=== PATIENT | male | born 1965 | race Caucasian/White ===

== ENCOUNTER 2016-12-23 14:17 | Inpatient (IN) | payer MEDICARE, MEDICAID ==
[~2016-12-23] VITALS: Ht 185.4 cm; Wt 148.8 kg
[~2016-12-23 14:17] MED LIST: ACET325T51 PO; AMLO5TAB2 PO; ASPI-275 PO; ATOR10TA66 PO; BISA10SU15 RC; CARB15DR3 BOTH_EYES; CARV25TA2 PO; DIPH50C PO; DOXA4TAB3 PO; FURO40TA4 PO; HYDR2TAB27 PO; HYPR15DR3 BOTH_EYES; INSU100C8 SUBQ; INSU100V2 SUBQ; INSU100V7 SUBQ; ISOS30TA4 PO; LORA0.5T PO; NITR0.4T SL; NITR1PAT64 TD; OMEG500C3 PO; OXYB5TAB10 PO; POLY17PO6 PO; POTA10TA14 PO; PROM25TA14 PO; SERT100T9 PO; SERT50TA9 PO; ZLP10T PO; ZYL100 PO; [UNRECOGNIZED DRUG - CODE] PO
[2016-12-23 14:26] VITALS: BP 152/90; PULSE 71; RESP 24; O2SAT 85
[2016-12-23 15:17] LABS: BASOPHILS % (AUTO) 0.3 % (0-3); EOSINOPHILS % (AUTO) 2.8 % (0-5); MONOCYTES % (AUTO) 5.3 % (4-12); Mean Corpuscular Hemoglobin 28.7 pg (27.0-35.0); Mean Corpuscular Volume 87.3 fL (81-100); NEUTROPHILS % (AUTO) 80.1 % (40-74); Platelet Count 192 bil/L (150-400)
--- NOTE | 2016-12-23 15:19 | DRSVH ---
PROCEDURE: X-RAY CHEST ONE VIEW, PORTABLE ([id number]) INDICATIONS: dyspnea TECHNIQUE: One view of the chest was acquired. COMPARISON: [facility], CR, CHEST 1VW (PORTABLE), 07/22/2014, 18:42. [facility], CR, HAND 2VW (LT), 05/09/2014, 18:05. FINDINGS: Surgical changes and devices: None. Lungs and pleura: The pulmonary vascularity is moderately increased with prominent perihilar intersti tial lung markings. No lobar consolidation, large effusion or pneumothorax is evident. Mediastinum: Mediastinal contours appear normal. Heart size is moderately enlarged. Bones and chest wall: No suspicious bony lesions. Overlying soft tissues appear unremarkable. IMPRESSION: Cardiomegaly and moderate vascular congestion is suspicious for developing pulmonary pau a. Please correlate clinically. Dictated by: Isiah Santos M.D. on 12/23/2016 at 14:16 Approved by: Isiah Santos M.D. on 12/23/2016 at 14:17
[2016-12-23] MEDS ORDERED: Furosemide 10 mg/mL 10 mL Inj IVPUSH ONE (15:30)
[2016-12-23 15:39] LABS: TROPONIN T 0.014 ug/L (0.0-0.011)
[2016-12-23 15:42] VITALS: BP 157/80; PULSE 71; RESP 21; O2SAT 95
--- NOTE | 2016-12-23 17:17 | ED.REPORT ---
HPI-Dyspnea / Wheezing Date of Service Dec 23, 2016 ED Provider: Forrest Flores DO Patient is a pleasant 51-year-old gentleman with complex medical history significant for congestive heart failure, and stage III kidney disease, insulin- dependent diabetes, presents with 2 weeks progressive shortness of breath and worsening orthopnea. He reports having weight gain, lower extremity swelling greater than from his baseline, close feeling tighter. Reports he is supposed to be taking 40 mg of furosemide in the morning and at night, he was becoming annoyed at having to get up at night to urinate so he has stopped taking his 40 mg nighttime dose, for 1 month. Denies chest pain, does have some lightheadedness when he is very short of breath, no dizziness, no abdominal pain , no nausea/vomiting/diarrhea/constipation. No rashes, denies fever says that he has had some chills. States he had similar symptoms 10 years ago and was diagnosed as "walking pneumonia" Nursing Notes Stated Complaint: SHORT OF BREATH Chief Complaint: Respiratory Distress Nursing Notes Reviewed: Yes Allergies: Coded Allergies: hydroxyzine (Verified Allergy, Unknown, 12/23/16) simvastatin (Verified Allergy, Unknown, per MAR from [facility], ) hydralazine (Verified Adverse Reaction, Severe, dizziness, nausea, vomiting, 12/23/16) Scheduled Allopurinol (Allopurinol) 100 Mg Tablet 100 MG PO QAM Amitriptyline (Amitriptyline) 10 Mg Tablet 20 MG PO HS Amlodipine (Amlodipine) 5 Mg Tablet 5 MG PO QAM Aspirin (Aspirin) 325 Mg Tablet 325 MG PO BID Carvedilol (Carvedilol) 25 Mg Tablet 50 MG PO BID Furosemide (Furosemide) 40 Mg Tablet 40 MG PO BID Insulin Glargine (Lantus U100 Insulin Vial) 100 Unit/Ml Vial 26 UNIT SUBQ QAM Insulin Glulisine (Apidra U100 Insulin Vial) 100 Unit/1 Ml Vial 13 UNIT SUBQ TIDAC [place]-3/Dha/Epa/Fish Oil (Fish Oil 1,000 mg Softgel) 1 Each Capsule 1 EACH PO BID Paroxetine (Paroxetine) 40 Mg Tablet 40 MG PO QAM Potassium Chloride ER (Klor-Con M10) 10 Meq Tab.er.prt 10 MEQ PO MOWEFR Tamsulosin ER (Tamsulosin ER) 0.4 Mg Cap.er.24h 0.8 MG PO HS Scheduled PRN Guaifenesin (Mucinex) 600 Mg Tablet.er 600 MG PO BID PRN PRN For Cough Lorazepam (Lorazepam) 0.5 Mg Tablet 0.5 MG PO BID PRN PRN For Anxiety Trazodone (Trazodone) 50 Mg Tablet 50 MG PO HS PRN PRN Insomnia General Time Seen by MD: 14:45 Chief Complaint Shortness of breath Similar Sx Previous: Yes Past Medical History Past Medical History 1. Significant coronary disease. 2. Recent non STEMI. 3. Hypertension. 4. Hypertensive nephropathy. 5. Aortic stenosis graded moderately severe with a valve gradient of 15 mm. 6. He has had 2 strokes in the past with chronic left-sided weakness. 7. He has chronic stage 3 kidney disease. 8. Severe morbid obesity with a BMI above 50. 9. Congestive heart failure with systolic and diastolic components. 10. History also of gout. 11. Cataracts. 12. Insulin-dependent diabetes. 13. Traumatic jones catheter REMOVAL. Past Surgical History rt wrist trauma requiring sugical intervention ~8yrs ago. Family History Mother - none. Father - DMII, HTN, TIAs And "brain tumor" Aunts - DMII Smoking History Never Smoker Social History Lives at home, has care givers. Drug Use: Denies drug use Ambulatory Status Walker Review of Systems Complete sys rev & neg: except as marked. Physical Exam General: Sitting upright in bed 90, mild distress, morbidly obese HEENT: Normocephalic, atraumatic, EOMI grossly, left pupil is mildly enlarge slightly disfigured, mucous membranes moist, conjunctiva pink, poor dentition. Cardiovascular: Regular rate and rhythm, 4/6 blowing systolic murmur heard throughout precordium, peripheral pulses 2/4 radial, unable to appreciate dorsal pedalis Pulmonary: Rales appreciated, breath sounds distant. No wheezing or rhonchi. No egophany or dullness to percussion. Conversational dyspnea Abdominal: Soft to palpation, bowel sounds present 4, no hepatosplenomegaly. Negative rebound. Grossly rotund Extremities: Severe equal bilateral pitting edema to his knees. No open wounds , sores, weeping. Neuro: Neurologically grossly intact, strength is equal bilaterally upper and lower extremities. Speech is fragmented, slow, and deliberate MSK: Able to move extremities on their own volition, strength 5 out of 5 equal bilaterally to upper and lower extremities. Initial Vital Signs Vital Signs (First) Date Time Temp Pulse Resp B/P Pulse Ox O2 Delivery O2 Flow Rate FiO2 12/23/16 14:26 36.2 71 24 152/90 85 Room Air 12/23/16 15:42 2 Initial VS: Reviewed Interpretation & Diagnostics Lab Results Interpretation Result Diagram: 12/23/16 1448 12/23/16 1448 Test 12/23/16 14:48 White Blood Count 6.2th/mm3 (3.8-10.1) Red Blood Count 3.87mil/mm3 (4.40-5.80) Hemoglobin 11.1g/dL (13.8-17.2) Hematocrit 33.8% (41.0-50.0) Mean Corpuscular Volume 87.3fL (81-100) Mean Corpuscular Hemoglobin 28.7pg (27.0-35.0) Mean Corpuscular Hemoglobin Concent 32.8% (32.0-37.0) Red Cell Distribution Width 14.0% (12.3-15.4) Platelet Count 192bil/L (150-400) Neutrophils (%) (Auto) 80.1% (40-74) Lymphocytes (%) (Auto) 11.3% (14-46) Monocytes (%) (Auto) 5.3% (4-12) Eosinophils (%) (Auto) 2.8% (0-5) Basophils (%) (Auto) 0.3% (0-3) D-Dimer 1.17mg/L FEU (<0.50) Sodium Level 138mEq/L (134-144) Potassium Level 4.4mEq/L (3.5-5.2) Chloride Level 103mEq/L (97-108) Carbon Dioxide Level 19mmol/L (18-29) Blood Urea Nitrogen 48mg/dL (6-24) Creatinine 3.13mg/dL (0.76-1.27) Estimat Glomerular Filtration Rate 22mL/min (>59) Glucose Level 149mg/dL (60-99) Lactic Acid Level 0.8mmol/L (0.4-2.0) Calcium Level 9.0mg/dL (8.5-10.1) Magnesium Level 2.0mg/dL (1.6-2.6) Total Bilirubin 0.7mg/dL (0.0-1.2) Aspartate Amino Transf (AST/SGOT) 16U/L (0-50) Alanine Aminotransferase (ALT/SGPT) 14U/L (0-44) Alkaline Phosphatase 70U/L (25-150) Pro-B-Type Natriuretic Peptide 4701pg/mL (0-121) Total Protein 7.1g/dL (6.4-8.4) Albumin 3.5g/dL (3.4-5.0) Procalcitonin 0.12ng/mL (0.00-0.08) Lab Results Interpretation: Mild anemia Elevated BUN and creatinine Hyperglycemia Elevated troponin and pro-calcitonin may be secondary to decreased renal clearance Elevated troponin may indicate cardiac stress/demand ischemia secondary to fluid overload state ECG Interpretation ECG Interpretation: Sinus rhythm Rate 67 "Abnormal T, consider ischemia, lateral leads. ST elevation, consider anterior injury" No substantial change from previous EKG from 2014 X-Ray Chest Interpretation Chest Xray Interpretation: IMPRESSION: Cardiomegaly and moderate vascular congestion is suspicious for developing pulmonary edema. Please correlate clinically. Dictated by: Isiah Santos M.D. on 12/23/2016 at 14:16 Re-Eval/Medical Decision Med Decision/Clinical Course Lasix 80mg IV Base of the clinical context of increased shortness of breath, poor medication compliance taking only half of his prescribed dose of furosemide, subjective increased abdominal girth and lower extremity edema, felt this was most likely congestive heart failure exacerbation leading to pulmonary edema. Chest x-ray was consistent with pulmonary edema, troponin was mildly elevated as well as his creatinine consistent with stage III renal disease. Patient was given IV Lasix which he responded to well, putting out substantial amount of fluid before able to use a bedside urinal. Due to CHF exacerbation as well as other comorbidities of diabetes and elevated troponin and mildly elevated pro- calcitonin, felt patient should be admitted for medical management. Consultation : Referral / Consult Name: Stewart Mata MD Consulted With: Hospitalist Call Returned at: 18:00 Java Groovy Developer: Will see patient, Agrees with eval, Agrees with plan, Accepts admit Differential Diagnosis: Positive: Congestive heart failure Severity: Serious condition Diagnosis Appears: Evident Discharge & Departure Impression: Primary Impression: CHF (congestive heart failure) Congestive heart failure type: combined Congestive heart failure chronicity: acute on chronic Qualified Code: I50.43 - Acute on chronic combined systolic (congestive) and diastolic (congestive) heart failure Additional Impressions: Demand ischemia Pulmonary edema cardiac cause Referrals: Ray Diaz MD (PCP) Attending Statement seen and examined with Dr Hi on 12/23. Agree with above. Son Vilchis DO Dec 23, 2016 15:19 Onofre Reynolds MD Dec 24, 2016 00:50
[2016-12-23] MEDS ORDERED: TAMS0.4C29 PO (17:25)
[2016-12-23] MEDS ORDERED: OMEG-38 PO (17:25)
[2016-12-23] MEDS ORDERED: AMIT10TA6 PO (17:25)
[2016-12-23] MEDS ORDERED: TRAZ-115 PO (17:25)
[2016-12-23] MEDS ORDERED: GUAI1TAB27 PO (17:28)
[2016-12-23] MEDS ORDERED: PARO40TA3 PO (17:35)
[2016-12-23] MEDS ORDERED: GUAI600T2 PO (17:37)
[2016-12-23] MEDS ORDERED: ASPI325T32 PO (17:39)
[2016-12-23] MEDS ORDERED: Alum-Mag Hydrox-Simeth 30 mL Suspension PO PRN ×2 (18:10→18:35)
[2016-12-23] MEDS ORDERED: Polyethylene Glycol (PEG) 17 Gm Powder PO PRN (18:10)
[2016-12-23] MEDS ORDERED: Ondansetron 2 mg/mL 2 mL Inj IVPUSH PRN ×2 (18:10→18:35)
[2016-12-23 18:24] VITALS: BP 172/110; PULSE 72; RESP 24; O2SAT 91
[2016-12-23 18:25] VITALS: BP 172/110; PULSE 72; RESP 24; O2SAT 91
--- NOTE | 2016-12-23 19:00 | NUR ---
admit: admit and med rec was completed in the ER pt up to floor at apprx 1900. pt A&OX3, reports that he is blind in his left eye. pt arrived to floor with condom cath, order for jones catheter, and placed. lidocaine jelly for prn jones irritation. pt refused baribed. night time meds ordered and given. pt c/o left arm pain, order for Vicodin obtained and given. pt on 3LO2 via NC, CPOX in place, O2 sat 92%. will continue to monitor pt.
[2016-12-23 19:10] LABS: APPEARANCE,URINE CLEAR (CLEAR,HAZY); COLOR,URINE STRAW (YELLOW); OCCULT BLOOD,URINE SMALL (NEGATIVE); PH,URINE 5.5 (5.0-8.0); UROBILINOGEN,URINE NORMAL (NORMAL)
[2016-12-23 19:24] VITALS: BP 158/84; PULSE 68; RESP 22; O2SAT 91
[2016-12-23] MEDS ORDERED: Lidocaine 2% 6mL Topical Jelly TOPICAL PRN (21:40)
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
[2016-12-23] MEDS ORDERED: guaiFENesin 600 mg ER12 Tablet PO PRN (23:15)
[2016-12-23] MEDS: Insulin LISPRO 300 Unit/3 mL Inj SUBQ SCH (23:50)
[2016-12-24] VITALS (8 sets, daily range): BP systolic 127–160; BP diastolic 67–78; PULSE 63–79; RESP 21–25; O2SAT 93–94
[2016-12-24 02:23] LABS: BASOPHILS % (AUTO) 0.2 % (0-3); MONOCYTES % (AUTO) 8.6 % (4-12); NEUTROPHILS % (AUTO) 74.1 % (40-74); Platelet Count 190 bil/L (150-400)
[2016-12-24 02:40] LABS: INR 1.03 ratio
[2016-12-24 03:00] LABS: Magnesium 1.9 mg/dL (1.6-2.6); Phosphorus 4.9 mg/dL (2.5-4.9)
[2016-12-24] MEDS ORDERED: HYDROcodone-APAP 5-325 mg Tablet PO PRN (03:15)
[2016-12-24] MEDS: LORazepam 0.5 mg Tablet PO PRN (04:46)
[2016-12-24] MEDS ORDERED: Furosemide 10 mg/mL 4 mL Inj IVPUSH SCH ×2 (06:00→08:00)
[2016-12-24] MEDS: Omega-3 Fatty Acids 1,000 mg Capsule PO SCH ×2 (08:36→20:09)
[2016-12-24] MEDS: PARoxetine 20 mg Tablet PO SCH (08:37)
[2016-12-24] MEDS: Pantoprazole 40 mg ER24 Tablet PO SCH (08:38)
[2016-12-24] MEDS: Insulin GLARgine 100 Unit/mL Syringe SUBQ SCH (08:44)
[2016-12-24] MEDS: Insulin LISPRO 300 Unit/3 mL Inj SUBQ SCH (08:45)
[2016-12-24] MEDS: Insulin LISPRO Medium-Dose Scale SUBQ SCH ×3 (11:59→22:00)
--- NOTE | 2016-12-24 15:35 | DRSVH ---
PROCEDURE: NM LUNG VQ RADIOPHARMACEUTICAL: 27.6 mCi Tc-99m DTPA aerosol by inhalation and 6.1 mCi Tc-99m MAA intravenously . INDICATIONS: POSITIVE D-DIMER WITH HYPOXIA TECHNIQUE: Ventilation images were obtained first with Tc-99m DTPA aerosol. Subsequently, perfusion images were acquired after intravenous injection of Tc-99m MAA. Anterior, posterior, ALEJANDRO, TOGOLESE, RPO, LPO, left and right lateral views were obtained. COMPARISON: [facility], CR, XR CHEST 1VW (PORTABLE), 12/23/2016, 15:01. FINDINGS: Perfusion images demonstrate no mismatched segmental perfusion defects in a vascular distri bution. Ventilation images demonstrate no definite areas of hypoventilation. IMPRESSION: Probability for pulmonary embolus is low. Dictated by: Eileen Gann MD, PhD on 12/24/2016 at 15:14 Approved by: Eileen Gann MD, PhD on 12/24/2016 at 15:33
--- NOTE | 2016-12-24 15:37 | NUR ---
Ambulation Pt has poor vision and hasn't ambulated through out the shift. Ambulated pt into wheel chair with one person moderate assist with the use of his walker and gait belt. Pt tolerated it fine. Guidance needed with pt's vision problems.
[2016-12-24] MEDS ORDERED: 0.9% Sodium Chloride 250 ML ONE (19:33)
[2016-12-24] MEDS: Furosemide 10 mg/mL 4 mL Inj IVPUSH SCH (19:42)
--- NOTE | 2016-12-24 19:45 | PCM.PHAPRO ---
Progress Date of Service: Dec 24, 2016 I was "short of breath Vancomycin Management per Pharmacy: Indication: Bacteremia (1 blood culture positive for staph) Goal Trough: 15-20 mg/dL Labs: WBC: 6.0 SrCr: 3.08 mg/dL Est CrCl: ~35 mL/min Nephrotoxic Risk Factors: BRAVO on CKD, high dose diuretic use: Lasix 80 mg IV Q12h and chlorthalidone Micro: 1 blood culture growing staph, sens pending Vitals: All stable Recommendation: Load: Vancomycin 2000 mg IV x 1 now (~13 mg/kg, capping dose at 2000 mg due to renal impairment and vital signs stable) Maintenance: Vancomycin 1250 mg IV Q24h (~12.5 mg/kg adjusted body weight due to BMI > 40 and renal impairment) Trough: Will draw vancomycin trough on 12/26/16 at 2000 prior to HS dose to monitor for accumulation and therapeutic dosing. Pharmacy to continue to monitor and adjust vancomycin as needed. Thank You, Bianka Mai, Pharm D. Bianka Mai Dec 24, 2016 19:45
[2016-12-24] MEDS: Vancomycin Dose per Pharmacist XX SCH (20:13)
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
[2016-12-25] VITALS (7 sets, daily range): BP systolic 133–148; BP diastolic 66–71; PULSE 59–82; RESP 20–22; O2SAT 89–95
--- NOTE | 2016-12-25 00:06 | PCM.PNMED ---
Subjective Date of Service Dec 24, 2016 Subjective Patient is requesting morphine for left arm pain. He otherwise is feeling a little bit better and has no other new complaints. Exam Vital Signs Vital Sign - Last Date Time Temp Pulse Resp B/P Pulse Ox O2 Delivery O2 Flow Rate FiO2 12/24/16 22:02 36.9 70 22 138/67 94 Nasal Cannula 3.00 Intake and Output 12/23/16 12/23/16 12/24/16 Cumulative From/Thru 15:00 23:00 07:00 12/23/16 14:26 - 12/24/16 05:17 Intake Total 918 ml 918 ml Output Total 1550 ml 1800 ml 3350 ml Balance -1550 ml -882 ml -2432 ml Intake Oral 918 ml 918 ml Output Urine Total 1550 ml 1800 ml 3350 ml Exam General: Patient is in no apparent distress laying in bed with his head elevated slightly at 30-45.. He is somewhat somnolent after receiving IV morphine. HEENT: Head is atraumatic and normocephalic. Eyes: Pupils are equally round and reactive to light and accommodation. Extraocular muscles are intact. Sclera are white, anicteric. Subconjunctival mucosa is pink. Ears and nose are unremarkable. Oropharynx: There is no mucosal lesions, there is no thrush, there is no pharyngitis. Neck: Is obese, supple, there are no nodes, or masses or tenderness appreciated. Chest: Is significant for diminished breath sounds bilaterally with a few crackles at the bases. Heart: Rate, rhythm is regular. There is no new murmur, rub or gallop. However , heart tones are distant. Abdomen: Good bowel sounds are present. Abdomen is morbidly obese, soft, nontender, no organomegaly or masses could be appreciated. Extremities: Are symmetrical and well perfused. There is no edema, there is no cellulitis, no rash. Neurologic: Cranial nerves II through XII are intact. He does have some dysarthria due to previous stroke patient also has some weakness of the left upper shoulder and left partially due to previous stroke. Psychiatric: Patients mood is calm and he shows no sign of agitation. Genital: A Guaman catheter has been placed. Rectal: Deferred Lab and Diagnostics Result Diagram: 12/24/16 0210 12/24/16 0210 Microbiology Blood cultures are pending X-Rays, CTs and MRIs PROCEDURE: X-RAY CHEST ONE VIEW, PORTABLE ([id number]) INDICATIONS: dyspnea TECHNIQUE: One view of the chest was acquired. COMPARISON: [facility], CR, CHEST 1VW (PORTABLE), 07/22/2014, 18: 42. [facility], CR, HAND 2VW (LT), 05/09/2014, 18:05. FINDINGS: Surgical changes and devices: None. Lungs and pleura: The pulmonary vascularity is moderately increased with prominent perihilar interstitial lung markings. No lobar consolidation, large effusion or pneumothorax is evident. Mediastinum: Mediastinal contours appear normal. Heart size is moderately enlarged. Bones and chest wall: No suspicious bony lesions. Overlying soft tissues appear unremarkable. IMPRESSION: Cardiomegaly and moderate vascular congestion is suspicious for developing pulmonary edema. Please correlate clinically. Dictated by: Isiah Santos M.D. on 12/23/2016 at 14:16 Approved by: Isiah Santos M.D. on 12/23/2016 at 14:17 Assessment & Plan Patient is a pleasant 51-year-old gentleman with complex medical history significant for congestive heart failure, and stage III kidney disease, insulin- dependent diabetes, presents with 2 weeks progressive shortness of breath and worsening orthopnea. He reports having weight gain, lower extremity swelling greater than from his baseline, close feeling tighter. Reports he is supposed to be taking 40 mg of furosemide in the morning and at night, he was becoming annoyed at having to get up at night to urinate so he has stopped taking his 40 mg nighttime dose, for 1 month. Denies chest pain, does have some lightheadedness when he is very short of breath, no dizziness, no abdominal pain , no nausea/vomiting/diarrhea/constipation. No rashes, denies fever says that he has had some chills. States he had similar symptoms 10 years ago and was diagnosed as "walking pneumonia". After evaluation in the emergency room the patient was admitted to the hospitalist service for further evaluation and treatment. # Acute on chronic systolic and diastolic congestive heart failure with anasarca , present on admission. Ongoing - Rule out secondary to progressive cardiomyopathy. Patient does have a history of a non-ST elevated OH. Rule out hypertensive cardiomyopathy - Rule out secondary to progressive aortic stenosis. - Check echocardiogram - The serial troponins are just barely above normal - We will consider cardiology consultation depending on echocardiogram findings. - Continue aggressive diuresis. Patient received 80 mg of Lasix IV in the emergency room. Will likely continue Lasix 40 mg IV twice a day - We will place Guaman catheter to monitor urine output closely # Insulin-dependent diabetes mellitus - Check blood sugars every before meals and at bedtime - Continue home medications # Acute on chronic kidney disease, present on admission. Ongoing - Patient has a history of chronic kidney disease stage III(Patient's creatinine is now over 3). - With history of benign prostatic hypertrophy and urinary Frequency [address] Guaman catheter to eliminate obstructive uropathy as a factor in the patient's renal failure. - Continue tamsulosin - Nephrology consultation was obtained with Dr. Celeste. I appreciate his consultation and will follow his recommendations. # History of significant coronary artery disease and non-ST elevated OH - Monitor serial troponins - Check echocardiogram and - Consider cardiology consultation. I discussed with Dr. Eren Akbar and cardiology consult is pending. #Hypertension - Continue medications with carvedilol and diuretics. - Monitor blood pressure closely # History of aortic stenosis - The last echocardiogram on record was in 2013. - I suspect there has been some deterioration in his aortic valve since that time. - Check echocardiogram # Severe morbid obesity with BMI at 45.6 kg/m # History of gout Disposition: Patient will likely be here several more days for evaluation and treatment of the above condition. Pain Evaluation: Adequate Pain Control GI Prophylaxis: Proton Pump Inhibitor VTE Prophylaxis: Sub-Q Enoxaparin Resuscitation Status: CPR: Attempt Resuscitation Stewart Mata MD Dec 25, 2016 00:06
[2016-12-25 06:05] LABS: BASOPHILS % (AUTO) 0.3 % (0-3); EOSINOPHILS % (AUTO) 3.5 % (0-5); MONOCYTES % (AUTO) 9.1 % (4-12); Mean Corpuscular Hemoglobin 28.7 pg (27.0-35.0); Mean Corpuscular Volume 89.3 fL (81-100); NEUTROPHILS % (AUTO) 75.1 % (40-74); Platelet Count 194 bil/L (150-400)
[2016-12-25 06:24] LABS: Magnesium 1.8 mg/dL (1.6-2.6)
[2016-12-25] MEDS: Insulin LISPRO Medium-Dose Scale SUBQ SCH ×4 (07:54→22:00)
[2016-12-25] MEDS: Pantoprazole 40 mg ER24 Tablet PO SCH (08:15)
[2016-12-25] MEDS: Furosemide 10 mg/mL 4 mL Inj IVPUSH SCH (08:16)
[2016-12-25] MEDS: Vancomycin Dose per Pharmacist XX SCH (08:30)
--- NOTE | 2016-12-25 08:48 | DRSVH ---
PROCEDURE: US RENAL SONOGRAM INDICATIONS: worsening creatinine TECHNIQUE: Real-time scanning was performed of the kidneys and bladder, with image documentation. COMPARISON: [facility], US, RETROPERITONEAL SONOGRAM, 10/16/2015, 13:04. FINDINGS: Kidneys: Kidneys are normal in size. Right kidney measures 10.9 cm long; left kidney measures 10.6 cm long. Right renal cortical thickness is 1.7 cm; left renal cortical thickness is 1.7 cm. Renal c ortical echotexture is normal. No hydronephrosis or nephrolithiasis. No suspicious solid mass lesio ns. Bladder: Guaman catheter present in urinary bladder not visualized. Miscellaneous: No free pelvic fluid. IMPRESSION: Grossly normal appearance of the kidneys and no hydronephrosis is seen. Dictated by: Vic PADILLA Interpreted: Veda Go MD on 12/25/2016 at 8:47 Transcribed by: MARCO on 12/25/2016 at 8:48 Approved by: Veda Go M.D. on 12/25/2016 at 16:00
[2016-12-25] MEDS: Omega-3 Fatty Acids 1,000 mg Capsule PO SCH ×2 (09:28→22:30)
[2016-12-25] MEDS: PARoxetine 20 mg Tablet PO SCH (09:28)
[2016-12-25] MEDS: Insulin GLARgine 100 Unit/mL Syringe SUBQ SCH (09:29)
--- NOTE | 2016-12-25 13:46 | NUR ---
Social work Note - Initial Assessment Kaden Dobson is a 51 yr old who was admitted for CHF. Pt has had a stroke, has L side deficits and limited vision. EMR reviewed: Pt has Medicare and [facility]. His PCP is Ray Diaz. Readmit score is 5 - High. Pt has no VA or LTC insurance. See attached CM initial assessment. APPEALS REVIEWER VETERAN met with pt - introduced d/c planning and explained SW role. Pt lives in [place] by himself. He uses a walker at baseline and has chore providers through [facility] - Pt's CM is Genie Dyson. APPEALS REVIEWER VETERAN asked [facility] Specialist to fax clinicals. Pt states that he is being evicted from his apartment - states that his landlord has no cause as he has paid his rent and utilities - Medical Microbiologist has thrown out the eviction once. Pt states that he has worked with [facility] - [place] and Genie Dyson has offered to work with [facility] for skilled nursing placement and pt has refused. Pt is aware of community resources like [employer]. APPEALS REVIEWER VETERAN provided support and encouraged Pt to work with his CM at [facility]. APPEALS REVIEWER VETERAN offered Home health, pt declined. Pt refusing to work with PT - states that he does not want to go to SNF - has been to [facility] in the past. Pt states that he has DPOA paperwork at home but admits he does not know where - APPEALS REVIEWER VETERAN provided new DPOA paperwork. Pt will fill it out with his mother. No other needs identified. Plan: Home - Transport by pt's mother or [facility]. Pt declined home health or SNF placement. KHADAR Maldonado Addendum: 12/25/16 at 1355 by MIKE CUELLAR Amended: Links added.
--- NOTE | 2016-12-25 14:20 | CONS ---
[address] [address] CONSULTATION REPORT PATIENT: NATANAEL BARRAGAN : 1965 MR#: [id number] ADMIT: 12/23/2016 JOB ID: [id number] DATE OF SERVICE: 12/25/2016 Dr. Ace Mata has asked that I consult on this unfortunate, 51-year-old male with known aortic stenosis and CHF from diastolic dysfunction. HISTORY: His cardiac history dates back to 2008 when he was admitted with CHF and diuresed, although developed acute on chronic renal insufficiency. An echocardiogram at that time showed an ejection fraction of 60% to 65% with moderately severe concentric LVH with moderate to moderately severe aortic stenosis with moderately severe left atrial enlargement and a small to moderate-sized pericardial effusion. Because of the elevated troponin, he underwent cardiac catheterization which showed only minimal plaquing but no significant obstructive coronary artery disease. He had moderate aortic stenosis with a transvalvular gradient of only 15 mmHg although his LV end-diastolic pressure was 44 mmHg at that time that the patient had a systolic pressure of 200. There was no significant renal artery stenosis. On the basis of this, it was felt that he had predominantly diastolic dysfunction from severe hypertensive heart disease and was treated medically and discharged with subsequent followup by the [facility] cardiologists. He was readmitted in April 2014 with chest discomfort and a creatinine of 2.0. He was felt not to be an interventional candidate because of his renal insufficiency and BMI of 50. He was also found to have obstructive sleep apnea. He was discharged on medical therapy but readmitted in July 2014 again with chest discomfort and borderline troponins and was evaluated by Dr. Dejesus. It was felt that his chest pain was noncardiac and his echocardiogram again showed moderate to moderately severe aortic stenosis with a peak velocity of 4.0 m/sec but a valve area calculated at 1.4 cm2. He again was felt not to be an interventional candidate. He was treated medically with recommendations to follow up with the [facility]. He states that he last saw them around two years ago and underwent cardiac catheterization at that time, and again only medical therapy was recommended. He has not seen them since then. He has been in his usual state of health up until two weeks ago which has been relatively poor, limited by a significant stroke in 2007, which has left him with a left-sided hemiparesis. Around two weeks ago, he disliked the frequent nocturia that he was experiencing and therefore stopped his 40 mg dose of evening furosemide but continued with his morning dose. Over the next two weeks, he developed increasing dyspnea with orthopnea and weight gain and pedal edema. He denied any chest discomfort, or palpitations. Because of his worsening dyspnea, he presented to the emergency department where his ECG showed an LVH with strain pattern but no acute changes. His troponins have been essentially negative with some nonspecific elevation up to 0.016, but his creatinine is 3.1. He has been given IV Lasix and now feels that his breathing is back to baseline. He denies any chest discomfort or any palpitations. He has had no lightheadedness except for when he has low blood sugar. He is not doing any regular exercise because of his stroke. CARDIAC RISK FACTORS: Notable for hypertension, diabetes, and hyperlipidemia. He has never smoked. There is no family history of any premature coronary disease. His father had a stroke from a brain tumor. PAST MEDICAL HISTORY: Morbid obesity with documented obstructive sleep apnea, although the patient has refused to use CPAP. He had a TIA in 2005 and a stroke in 2007. He has severe diabetes with diabetic retinopathy with left eye blindness. He has a history of gout. While the medical records suggests that he has had a recent non-STEMI this is not true. He has never had a documented acute coronary syndrome and he does not have significant coronary artery disease documented unless his catheterization at [place] shows otherwise. HOME MEDICATIONS: 1. Allopurinol 100 mg daily. 2. Amitriptyline 20 mg q.h.s. 3. Amlodipine 5 mg q.a.m. 4. Aspirin 325 mg b.i.d. 5. Carvedilol 25 mg b.i.d. 6. Furosemide 40 mg b.i.d. although noncompliant prior to admission. 7. Insulin. 8. Paroxetine 40 mg daily. 9. Potassium 10 mEq daily. 10. Tamsulosin 0.8 mg q.h.s. FAMILY HISTORY: As above. 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 He drinks no alcohol. He is followed by Dr. Diaz. REVIEW OF SYSTEMS: A complete review is performed and is notable for some recent increased weight gain and pedal edema but none otherwise. Denies any fevers or chills. No recent vision change but has persistent left eye blindness. Denies any ENT problems. Denies any hemoptysis. He has had a recent cough with his increased dyspnea but this has now resolved. Denies any history of peptic ulcer disease or GI blood loss. Denies any genitourinary complaints. No hematemesis or hematuria. Denies any musculoskeletal complaints. He has had no further neurologic symptoms since 2007. Denies any history of thyroid or bleeding disorder. Admits to some mild depression but no unusual depression or anxiety. PHYSICAL EXAMINATION: A severely obese, middle-aged male with slightly slurred speech, who appears comfortable, in no acute distress. HR 72. BP 135/66. O2 saturation 94% on 3 L of nasal cannula. He has had a net diuresis of around 5.5 kg. His weight has not been checked since admission. Skin: Warm and dry. HEENT: EOMI although his left pupil is fixed. There is no arcus. He has no upper teeth and has moderate dentition on his lower teeth. Lungs: Decreased breath sounds throughout but without any appreciable rales or wheeze. CV: Nonpalpable PMI with a regular rate and rhythm with a normal S1 and S2, with a 3/6 systolic ejection murmur at the right upper sternal border radiating to both carotids but which have a fairly normal upstroke. There is no obvious underlying bruit. JVP is elevated at 7-8 cm. Dorsalis pedis and posterior tibial pulses are nonpalpable. Abdomen: Severely obese, but nondistended and nontender. There is a large suprapubic pannus. There is no obvious hepatosplenomegaly. No bruits are appreciated. : Guaman catheter in place draining yellow urine. Extremities: 2+ bilateral pitting edema but warm. No clubbing or cyanosis. There is a scabbed scar on his left garcia. Neuro. Has some left-sided weakness and some slurred speech. Psych: Awake, alert, and oriented. Laboratory: Hematocrit this morning is 34% with a normal white count. BUN has increased from 48-53 and creatinine from 3.1-3.6. Troponins have been borderline to a maximum of 0.016. ProBNP was 5574. Potassium 4.0. Magnesium was 1.8. His LDL is 164 with a total cholesterol of 222 and HDL of 32. Chest x-ray: Showed cardiomegaly with vascular congestion consistent with pulmonary edema. Lung V/Q scan was low probability for pulmonary embolus. ECG: Shows sinus rhythm with an LVH and strain pattern but no acute changes. Echocardiogram: Pending. IMPRESSION: 1. Acute on chronic congestive heart failure due to diastolic dysfunction in part due to medication noncompliance. The patient has previously been documented to have severe diastolic dysfunction, in part due to his renal insufficiency and hypertensive heart disease. I suspect that his fluid accumulation is a result of his medication noncompliance. I would continue with diuresis although with close observation of his renal function. He appears to continue to have some evidence of volume overload, although the rate of diuresis may need to be reduced to avoid further renal dysfunction. I would leave this to the renal service to manage. Beyond this, I would attempt to control his blood pressure as best possible. 2. Aortic stenosis. He may have significant aortic stenosis, although he tells me today that he has been offered aortic valve replacement and he has refused this. Given this, I would simply continue with medical therapy as best possible. An echocardiogram will be obtained to reassess valvular function but there are limited options unless he changes his mind. He would be a very high surgical candidate given his comorbidities and would require cardiac catheterization which could potentially produce end-stage renal disease. If his aortic valve disease has progressed to severe or critical status, then a Palliative Care consult may be appropriate. 3. Elevated troponin. His troponin is nondiagnostic and likely reflection of his congestive heart failure and renal insufficiency. He has no history of any documented coronary artery disease in our records and he has not had any STEMI as far as I can see. All of his elevated troponins have been a reflection of his renal insufficiency. I will attempt to obtain medical records from [facility] to see if he has had any additional studies more recently that would suggest otherwise. Again, however, he is not an interventional candidate and I would simply continue with aggressive risk factor modification. 4. Hyperlipidemia. He has severe hyperlipidemia and with his diabetes should be on statin therapy. I would recommend institution of atorvastatin 40 mg daily. 5. Hypertension, with hypertensive heart disease. As above. 6. Severe obesity with obstructive sleep apnea. I discussed with him the need for treatment of this, but he is resistant. 7. Poor social situation. A Social consult should be considered. 8. History of stroke. 9. Diabetes with diabetic retinopathy. Per the hospitalist. RECOMMENDATION: 1. Obtain an echocardiogram, although I suspect treatment will be directed from a medical standpoint. If he has severe to critical aortic stenosis, a Palliative Care consult would be appropriate. 2. Continue with diuresis with supplementation of his magnesium to maintain levels greater than 2.0. I will leave this to the renal service given his acute on chronic renal insufficiency. 3. Continue to control his blood pressure as best possible maintaining systolic pressures at least less than 140. 4. [place] atorvastatin 40 mg daily and with a target of reducing his LDL to less than 100. 5. Attempt to obtain old records from [facility] in regards to any additional cardiac studies. At this point, I will sign off as I do not feel I have much more to offer. I spent 1 hour and 37 minutes reviewing old medical records, interviewing and examining the patient, answering his questions, and documenting such.
--- NOTE | 2016-12-25 15:38 | PCM.PNNEPH ---
Subjective Date of Service Dec 25, 2016 Subjective The patient has had a good response to diuretics his creatinine has increased. His blood pressures have not been significantly low and in reviewing his echo and appears that he has a critical aortic stenosis. The patient states that his breathing considerably better and resting much more comfortably. Exam Vital Signs Vital Sign - Last Date Time Temp Pulse Resp B/P Pulse Ox O2 Delivery O2 Flow Rate FiO2 12/25/16 13:03 37.1 71 20 133/66 94 Nasal Cannula 2.00 Intake and Output 12/24/16 12/24/16 12/25/16 Cumulative From/Thru 14:59 22:59 06:59 12/23/16 14:26 - 12/24/16 22:58 Intake Total 1448 ml 2366 ml Output Total 1000 ml 4350 ml Balance 448 ml -1984 ml Intake Oral 840 ml 1758 ml IV Total 608 ml 608 ml Output Urine Total 1000 ml 4350 ml Exam Neck is supple without adenopathy, thyromegaly, or jugular venous distention. Lungs clear to auscultation. Heart is regular with a 3/6 holosystolic murmur.. Abdomen is soft without any tenderness rebound guarding masses or hepatosplenomegaly. Extremities do not show any evidence of any clubbing, cyanosis, or edema. Skin turgor is good Lab and Diagnostics Result Diagram: 12/25/1653212/25/16532 Microbiology Blood cultures are pending X-Rays, CTs and MRIs PROCEDURE: X-RAY CHEST ONE VIEW, PORTABLE ([id number]) INDICATIONS: dyspnea TECHNIQUE: One view of the chest was acquired. COMPARISON: [facility], CR, CHEST 1VW (PORTABLE), 07/22/2014, 18: 42. [facility], CR, HAND 2VW (LT), 05/09/2014, 18:05. FINDINGS: Surgical changes and devices: None. Lungs and pleura: The pulmonary vascularity is moderately increased with prominent perihilar interstitial lung markings. No lobar consolidation, large effusion or pneumothorax is evident. Mediastinum: Mediastinal contours appear normal. Heart size is moderately enlarged. Bones and chest wall: No suspicious bony lesions. Overlying soft tissues appear unremarkable. IMPRESSION: Cardiomegaly and moderate vascular congestion is suspicious for developing pulmonary edema. Please correlate clinically. Dictated by: Isiah Santos M.D. on 12/23/2016 at 14:16 Approved by: Isiah Santos M.D. on 12/23/2016 at 14:17 Plan Impression Impression #1 acute decompensated congestive heart failure secondary to critical aortic stenosis #2 diabetic nephropathy #3 hypertension with hypertensive heart disease and hypertensive nephrosclerosis #4 chronic kidney disease stage IV Recommendations #1 hour hold his diuretics for the next 1-2 days. Continue to follow his lab and ultimately he needs some type of intervention for his heart. Jose Celeste DO Dec 25, 2016 15:38
--- NOTE | 2016-12-25 17:15 | DRSVH ---
[facility] [address] [place] [address] Echocardiogram Report Name: NATANAEL BARRAGAN LStudy Noah e: 12/25/2016 Height: 73 in Hospital Exam Location: [facility] Weight: 34 6 lb Gender: Male BSA: 2.7 m2 : 1965 Age: 51 yrs BP: 135/66 mmHg Reason For Study: HYPERVOLEMIA, MURMUR Ordering Physician: HOSPITALIST [facility] Performed By: Augusto Castellanos Referring Physician: NICKY RICHARDS Interpretation Summary 1. Normal left ventricular size with moderate concentric hypertrophy and normal systolic function. 2. Mildly dilated right ventricle with normal systolic function. 3. Severe aortic stenosis. Mild to moderate insufficiency. 4. Small pericardial effusion Compared to the previous study of 2013, the mean gradient across the aortic valve has increased. There has also been some increase in the aortic regurgitation (although it is not severe) Procedure: A two-dimensional transthoracic echocardiogram with color flow and Doppler was performed. The study quality was technically adequate. Comparison is made with the echocardiogram of 07/23/14. The patient was in normal sinus rhythm during the exam. Left Ventricle: The left ventricle is normal in size. There is moderate concentric left ventricular hypertrophy. The ejection fraction is estimated to be 65-70%. Left ventricular wall motion is normal. Spectral Doppler of the mitral valve is consistent with restriction, with an E/A wave ratio > 2.0. Right Ventricle: The right ventricle is mildly dilated. The right ventricular systolic function is normal. Atria: The left atrium is severely dilated. Right atrial size is normal. The interatrial septum is intact with no evidence for an atrial septal defect. Mitral Valve: The mitral valve leaflets appear mildly thickened, but open well. There is moderate to severe mitral annular calcification. Mean gradient is 5.7 mm Hg. There is mild to moderate mitral regurgitation. Aortic Valve: The aortic valve is moderately calcified. There is critically severe aortic stenosis. The peak aortic velocity is 4.7 m/sec. The aortic valve mean gradient is 59 mmHg. The calculated aortic valve area is 0.8 cm2. There is mild to moderate aortic regurgitation. Tricuspid Valve: The tricuspid valve leaflets are thin and pliable. Pulmonary artery pressures cannot be estimated because of the lack of a measurable TR jet velocity. Pulmonic Valve: The pulmonic valve leaflets are thin and pliable; valve motion is normal. There is no pulmonic valvular regurgitation. Great Vessels: The aortic root is normal size. The ascending aorta is mildly enlarged. The pulmonary artery is normal size. The IVC is dilated (diameter is greater than 2.1 cm) yet it collapses greater than 50% with a sniff. This suggests a right atrial pressure of 8 mm Hg. Pericardium/ Pleura There is a small pericardial effusion that is circumferential. There are no echocardiographic or Doppler indications for cardiac tamponade. There is no pleural effusion. MMode/2D Measurements & Calculations LVIDd: 5.3 cm RA long axis LVOT diam: 2.2 cm LVIDs: 3.5 cm LA A2 area: 41.4 cm AoV Opening FS: 34.2 % LA A4 area: 31.7 cm RA area EPSS: 1.3 cm LA length (vol) Ao root diam IVSd: 1.5 cm : 20.0 cm LVPWd: 1.4 cm LA vol: 171.4 ml RA vol asc Aorta Diam LA vol index : 72.3 ml RA Ao Arch Diam (Prox : 26.6 mm2 Trans): 3.0 cm IVC diam: 2.7 cm LV su. diameter/BSA LV sys. diameter/BSA (cm/m^2): 2.0 (cm/m^2): 1.3 Doppler Measurements & Calculations Ao V2 max: 469.6 cm/sec MV E max diego MV E/A: 2.1 PA V2 max Ao max P.2 mmHg : 198.1 cm/sec Med Peak E' Diego : 83.9 cm/sec Ao mean P.7 mmHg MV A max diego PA mean PG LVOT Max Diego : 93.4 cm/sec E/E' med: 60.7 : 1.7 mmHg : 108.9 cm/sec Lat Peak E' Diego MVA(VTI): 2.0 cm2 АННА(I,D): 0.79 cm E/E' lat: 31.9 sev ratio: 0.22 E/e' average AI P1/2t: 329.8 msec AI dec slope : 404.9 cm/s2c MV V2 mean: 98.7 cm/sec Ao V2 mean LV V1 max PG PA V2 mean MV mean P.0 mmHg : 372.8 cm/sec : 62.6 cm/sec MV V2 VTI: 46.8 cm Ao V2 VTI LV V1 VTI PA pr(Accel) MV dec time: 0.17 sec : 115.4 cm : 25.1 cm : 32.3 mmHg АННА(V,D): 0.84 cm2 АННА indexed to BSA (cm^2/m^2): 0.29 Reading Physician:05:14 PM
--- NOTE | 2016-12-26 00:39 | PCM.PNMED ---
Subjective Date of Service Dec 26, 2016 Subjective Patient is feeling a little bit better. However he is somewhat despondent over his current condition. Exam Vital Signs Vital Sign - Last Date Time Temp Pulse Resp B/P Pulse Ox O2 Delivery O2 Flow Rate FiO2 12/26/16 00:11 Supplement Oxygen 12/25/16 21:26 36.9 65 20 133/67 94 2.50 Intake and Output 12/25/16 12/25/16 12/26/16 Cumulative From/Thru 15:00 23:00 07:00 12/23/16 14:26 - 12/25/16 19:13 Intake Total 300 ml 236 ml 2902 ml Output Total 4150 ml 1600 ml 76550 ml Balance -3850 ml -1364 ml -7198 ml Intake Oral 300 ml 236 ml 2294 ml IV Total 608 ml Output Urine Total 4150 ml 1600 ml 15134 ml Exam General: Patient is in no apparent distress laying in bed with his head elevated slightly at 30-45.. He is somewhat somnolent after receiving IV morphine. HEENT: Head is atraumatic and normocephalic. Eyes: Pupils are equally round and reactive to light and accommodation. Extraocular muscles are intact. Sclera are white, anicteric. Subconjunctival mucosa is pink. Ears and nose are unremarkable. Oropharynx: There is no mucosal lesions, there is no thrush, there is no pharyngitis. Neck: Is obese, supple, there are no nodes, or masses or tenderness appreciated. Chest: Is significant for diminished breath sounds bilaterally with a few crackles at the bases. However, the lungs sound slightly clearer today. Heart: Rate, rhythm is regular. There is a grade 2 to 3/6 systolic ejection murmur heard best at left sternal border radiating to the base. There is no rub or gallop. However, heart tones are distant. Abdomen: Good bowel sounds are present. Abdomen is morbidly obese, soft, nontender, no organomegaly or masses could be appreciated. Extremities: Are symmetrical and well perfused. There is no edema, there is no cellulitis, no rash. Neurologic: Cranial nerves II through XII are intact. He does have some dysarthria due to previous stroke patient also has some weakness of the left upper shoulder and left partially due to previous stroke. Psychiatric: Patients mood is calm and he shows no sign of agitation. Genital: A Guaman catheter has been placed. Rectal: Deferred Lab and Diagnostics Result Diagram: 12/25/1653212/25/16532 Microbiology Blood cultures are pending X-Rays, CTs and MRIs PROCEDURE: X-RAY CHEST ONE VIEW, PORTABLE ([id number]) INDICATIONS: dyspnea TECHNIQUE: One view of the chest was acquired. COMPARISON: [facility], , CHEST 1VW (PORTABLE), 07/22/2014, 18: 42. [facility], CR, HAND 2VW (LT), 05/09/2014, 18:05. FINDINGS: Surgical changes and devices: None. Lungs and pleura: The pulmonary vascularity is moderately increased with prominent perihilar interstitial lung markings. No lobar consolidation, large effusion or pneumothorax is evident. Mediastinum: Mediastinal contours appear normal. Heart size is moderately enlarged. Bones and chest wall: No suspicious bony lesions. Overlying soft tissues appear unremarkable. IMPRESSION: Cardiomegaly and moderate vascular congestion is suspicious for developing pulmonary edema. Please correlate clinically. Dictated by: Isiah Santos M.D. on 12/23/2016 at 14:16 Approved by: Isiah Santos M.D. on 12/23/2016 at 14:17 Cardiac Echo Impressions Echocardiogram Report Name: NATANAEL BARRAGAN LStudy Noah e: 12/25/2016 Height: 73 in Hospital Exam Location: [facility] Weight: 34 6 lb Gender: Male BSA: 2.7 m2 : 1965 Age: 51 yrs BP: 135/66 mmHg Reason For Study: HYPERVOLEMIA, MURMUR Ordering Physician: HOSPITALIST [facility] Performed By: Augusto Castellanos Referring Physician: NICKY RICHARDS Interpretation Summary 1. Normal left ventricular size with moderate concentric hypertrophy and normal systolic function. 2. Mildly dilated right ventricle with normal systolic function. 3. Severe aortic stenosis. Mild to moderate insufficiency. 4. Small pericardial effusion Compared to the previous study of 2013, the mean gradient across the aortic valve has increased. There has also been some increase in the aortic regurgitation (although it is not severe) Assessment & Plan Patient is a pleasant 51-year-old gentleman with complex medical history significant for congestive heart failure, and stage III kidney disease, insulin- dependent diabetes, presents with 2 weeks progressive shortness of breath and worsening orthopnea. He reports having weight gain, lower extremity swelling greater than from his baseline, close feeling tighter. Reports he is supposed to be taking 40 mg of furosemide in the morning and at night, he was becoming annoyed at having to get up at night to urinate so he has stopped taking his 40 mg nighttime dose, for 1 month. Denies chest pain, does have some lightheadedness when he is very short of breath, no dizziness, no abdominal pain , no nausea/vomiting/diarrhea/constipation. No rashes, denies fever says that he has had some chills. States he had similar symptoms 10 years ago and was diagnosed as "walking pneumonia". After evaluation in the emergency room the patient was admitted to the hospitalist service for further evaluation and treatment. # Acute on chronic diastolic congestive heart failure with anasarca, present on admission. Ongoing - Rule out secondary to progressive cardiomyopathy. Patient claims to have a history of a non-ST elevated SC. However, Dr. Flores does not think that patient has ever had an acute coronary syndrome. - Rule out secondary to progressive aortic stenosis. - The echocardiogram is significant for the presence of severe aortic valve stenosis. - The serial troponins are just barely above normal - We appreciate cardiology consultation with Dr. Flores. - Continue aggressive diuresis as per Dr. Celeste of nephrology. - We will place Guaman catheter to monitor urine output closely # Insulin-dependent diabetes mellitus - Check blood sugars every before meals and at bedtime - Continue home medications # Acute on chronic kidney disease, present on admission. Ongoing and slightly worse today. - Continue Guaman catheter for accurate and input and output measurements and relief of any possibility of obstructive uropathy. - Patient has a history of chronic kidney disease stage III(Patient's creatinine is now over 3). - With history of benign prostatic hypertrophy and urinary Frequency [address] Guaman catheter to eliminate obstructive uropathy as a factor in the patient's renal failure. - Continue tamsulosin - Nephrology consultation was obtained with Dr. Celeste. I appreciate his consultation and will follow his recommendations. # History of significant coronary artery disease and non-ST elevated SC - Monitor serial troponins - Check echocardiogram and - Consider cardiology consultation. I discussed with Dr. Eren Akbar and cardiology consult is pending. # Hypertension - Continue medications with carvedilol and diuretics. - Monitor blood pressure closely # History of aortic stenosis - The last echocardiogram on record was in 2013. - I suspect there has been some deterioration in his aortic valve since that time. - Check echocardiogram # Severe morbid obesity with BMI at 45.6 kg/m # History of gout Disposition: Patient will likely be here several more days for evaluation and treatment of the above condition. Pain Evaluation: Adequate Pain Control GI Prophylaxis: Proton Pump Inhibitor VTE Prophylaxis: Sub-Q Enoxaparin Resuscitation Status: CPR: Attempt Resuscitation Stewart Mata MD Dec 26, 2016 00:39
[2016-12-26 00:41] VITALS: BP 139/69; PULSE 60; RESP 20; O2SAT 97
[2016-12-26 06:12] VITALS: PULSE 73
[2016-12-26 06:17] VITALS: BP 123/61; PULSE 58; RESP 20; O2SAT 97
[2016-12-26 06:50] LABS: BASOPHILS % (AUTO) 0.3 % (0-3); EOSINOPHILS % (AUTO) 4.5 % (0-5); MONOCYTES % (AUTO) 13.9 % (4-12); Mean Corpuscular Hemoglobin 29.5 pg (27.0-35.0); NEUTROPHILS % (AUTO) 65.6 % (40-74); Platelet Count 182 bil/L (150-400)
[2016-12-26] MEDS: Insulin LISPRO Medium-Dose Scale SUBQ SCH ×3 (07:52→17:35)
[2016-12-26] MEDS: Insulin GLARgine 100 Unit/mL Syringe SUBQ SCH (08:29)
[2016-12-26] MEDS: PARoxetine 20 mg Tablet PO SCH (08:30)
[2016-12-26] MEDS: Pantoprazole 40 mg ER24 Tablet PO SCH (08:30)
[2016-12-26] MEDS: Omega-3 Fatty Acids 1,000 mg Capsule PO SCH (08:30)
[2016-12-26 11:27] VITALS: BP 129/67; PULSE 60; RESP 20; O2SAT 96
[2016-12-26 12:01] VITALS: PULSE 57
--- NOTE | 2016-12-26 14:05 | PCM.PNNEPH ---
Subjective Date of Service Dec 26, 2016 Subjective Patient states that his breathing a bit better today. His echocardiogram showed severe worsening of his aortic stenosis with an ejection fraction of 65- 70%, concentric left ventricular hypertrophy and diastolic dysfunction. Blood pressure is good and his intake and output for the last 24 hours for side effects resection and 5750 out. This morning his sodium is 144, potassium 4.5, chloride 105, bicarbonate 24, BUN and creatinine were 59 and 3.68. Exam Vital Signs Vital Sign - Last Date Time Temp Pulse Resp B/P Pulse Ox O2 Delivery O2 Flow Rate FiO2 12/26/16 12:01 57 12/26/16 11:27 36.5 20 129/67 96 Nasal Cannula 2.50 Intake and Output 12/25/16 12/25/16 12/26/16 Cumulative From/Thru 15:00 23:00 07:00 12/23/16 14:26 - 12/25/16 19:13 Intake Total 300 ml 236 ml 2902 ml Output Total 4150 ml 1600 ml 55806 ml Balance -3850 ml -1364 ml -7198 ml Intake Oral 300 ml 236 ml 2294 ml IV Total 608 ml Output Urine Total 4150 ml 1600 ml 01244 ml Exam Neck is supple without adenopathy, thyromegaly, or jugular venous distention. Lungs were clear to auscultation. Heart is regular and rhythmical with a soft systolic murmur. Abdomen is soft without any tenderness rebound guarding masses or hepatosplenomegaly. Extremities showed some mild pitting edema to both distal lower extremities. Lab and Diagnostics Result Diagram: 12/26/16 0612/26/16 06 Microbiology Blood cultures are pending X-Rays, CTs and MRIs PROCEDURE: X-RAY CHEST ONE VIEW, PORTABLE ([id number]) INDICATIONS: dyspnea TECHNIQUE: One view of the chest was acquired. COMPARISON: , , CHEST 1VW (PORTABLE), 07/22/2014, 18: 42. , , HAND 2VW (LT), 05/09/2014, 18:05. FINDINGS: Surgical changes and devices: None. Lungs and pleura: The pulmonary vascularity is moderately increased with prominent perihilar interstitial lung markings. No lobar consolidation, large effusion or pneumothorax is evident. Mediastinum: Mediastinal contours appear normal. Heart size is moderately enlarged. Bones and chest wall: No suspicious bony lesions. Overlying soft tissues appear unremarkable. IMPRESSION: Cardiomegaly and moderate vascular congestion is suspicious for developing pulmonary edema. Please correlate clinically. Dictated by: Isiah Santos M.D. on 12/23/2016 at 14:16 Approved by: Isiah Santos M.D. on 12/23/2016 at 14:17 Cardiac Echo Impressions Echocardiogram Report Name: NATANAEL BARRAGAN LStudy Noah e: 12/25/2016 Height: 73 in Hospital Exam Location: [facility] Weight: 34 6 lb Gender: Male BSA: 2.7 m2 : 1965 Age: 51 yrs BP: 135/66 mmHg Reason For Study: HYPERVOLEMIA, MURMUR Ordering Physician: HOSPITALIST [facility] Performed By: Augusto Castellanos Referring Physician: NICKY RICHARDS Interpretation Summary 1. Normal left ventricular size with moderate concentric hypertrophy and normal systolic function. 2. Mildly dilated right ventricle with normal systolic function. 3. Severe aortic stenosis. Mild to moderate insufficiency. 4. Small pericardial effusion Compared to the previous study of 2013, the mean gradient across the aortic valve has increased. There has also been some increase in the aortic regurgitation (although it is not severe) Plan Impression Impression #1 acute decompensated congestive heart failure secondary to critical aortic stenosis #2 CK D stage IV #3 diabetic nephropathy #4 hypertension hypertensive heart disease and hypertensive nephrosclerosis #5 metabolic syndrome #6 obstructive sleep apnea. Recommendations #11 site was aware of the critical aortic stenosis yesterday abruptly stopped his diuretics as he will be more more preload dependent. I would like to give him a chance to review bright and then we will readdress his diuretic dosage. I also discussed at length with the patient the fact that he was not that far from end-stage renal disease and that the critical issue was his aortic stenosis and coronary artery disease. I also reiterated that dialysis was corrected everything else was meaningless. I have also discussed the case with Dr. Flores from cardiology. Jose Celeste DO Dec 26, 2016 14:05
--- NOTE | 2016-12-26 14:57 | NUR ---
Evaluation completed. Please go to "Notes" then click on "Assessments and Notes" (bottom left corner of screen). Then select appropriate discipline tab on top of screen.
[2016-12-26 17:21] VITALS: BP 137/79; PULSE 93; RESP 22; O2SAT 97
--- NOTE | 2016-12-26 18:18 | NUR ---
A-fib Per air sampling and monitoring pt went into Afib at 1546 thru 1740, & resolved on its own. notified, no new orders for now.
[2016-12-26] MEDS: LORazepam 0.5 mg Tablet PO PRN (19:18)
[2016-12-26] MEDS ORDERED: Vancomycin Serum Trough XX ONE (20:00)
--- NOTE | 2016-12-26 20:25 | NUR ---
TRANSFER TO [facility] Pt transferred to [facility] hospital via EMT at 2022 with all personal belongings. Report given to receiving RN, Prema. VSS. 2.5L NC. Telemetry box removed. Guaman and IV access intact.
--- NOTE | 2016-12-27 00:05 | PCM.DC.MED ---
Discharge Summary Date of Service Dec 26, 2016 Dates of Hospitalization Date of Hospital Admission Dec 23, 2016 at 17:44 Date of Discharge: Dec 26, 2016 Providers: Admitting Physician: Stewart Mata MD Primary Care Physician: Ray Diaz MD Attending Physician: Stewart Mata MD Procedures XRay, CTs & MRIs PROCEDURE: X-RAY CHEST ONE VIEW, PORTABLE ([id number]) INDICATIONS: dyspnea TECHNIQUE: One view of the chest was acquired. COMPARISON: [facility], CR, CHEST 1VW (PORTABLE), 07/22/2014, 18: 42. [facility], CR, HAND 2VW (LT), 05/09/2014, 18:05. FINDINGS: Surgical changes and devices: None. Lungs and pleura: The pulmonary vascularity is moderately increased with prominent perihilar interstitial lung markings. No lobar consolidation, large effusion or pneumothorax is evident. Mediastinum: Mediastinal contours appear normal. Heart size is moderately enlarged. Bones and chest wall: No suspicious bony lesions. Overlying soft tissues appear unremarkable. IMPRESSION: Cardiomegaly and moderate vascular congestion is suspicious for developing pulmonary edema. Please correlate clinically. Dictated by: Isiah Santos M.D. on 12/23/2016 at 14:16 Approved by: Isiah Santos M.D. on 12/23/2016 at 14:17 Cardiac Echo Impression Echocardiogram Report Name: NATANAEL BARRAGAN LStudy Noah e: 12/25/2016 Height: 73 in Hospital Exam Location: [facility] Weight: 34 6 lb Gender: Male BSA: 2.7 m2 : 1965 Age: 51 yrs BP: 135/66 mmHg Reason For Study: HYPERVOLEMIA, MURMUR Ordering Physician: HOSPITALIST [facility] Performed By: Augusto Castellanos Referring Physician: NICKY RICHARDS Interpretation Summary 1. Normal left ventricular size with moderate concentric hypertrophy and normal systolic function. 2. Mildly dilated right ventricle with normal systolic function. 3. Severe aortic stenosis. Mild to moderate insufficiency. 4. Small pericardial effusion Compared to the previous study of 2013, the mean gradient across the aortic valve has increased. There has also been some increase in the aortic regurgitation (although it is not severe) Brief History Patient is a pleasant 51-year-old gentleman with complex medical history significant for congestive heart failure, and stage III kidney disease, insulin- dependent diabetes, presents with 2 weeks progressive shortness of breath and worsening orthopnea. He reports having weight gain, lower extremity swelling greater than from his baseline, close feeling tighter. Reports he is supposed to be taking 40 mg of furosemide in the morning and at night, he was becoming annoyed at having to get up at night to urinate so he has stopped taking his 40 mg nighttime dose, for 1 month. Denies chest pain, does have some lightheadedness when he is very short of breath, no dizziness, no abdominal pain , no nausea/vomiting/diarrhea/constipation. No rashes, denies fever says that he has had some chills. States he had similar symptoms 10 years ago and was diagnosed as "walking pneumonia". After evaluation in the emergency room the patient was admitted to the hospitalist service for further evaluation and treatment. Hospital Course Patient is a pleasant 51-year-old gentleman with complex medical history significant for congestive heart failure, and stage III kidney disease, insulin- dependent diabetes, presents with 2 weeks progressive shortness of breath and worsening orthopnea. He reports having weight gain, lower extremity swelling greater than from his baseline, close feeling tighter. Reports he is supposed to be taking 40 mg of furosemide in the morning and at night, he was becoming annoyed at having to get up at night to urinate so he has stopped taking his 40 mg nighttime dose, for 1 month. Denies chest pain, does have some lightheadedness when he is very short of breath, no dizziness, no abdominal pain , no nausea/vomiting/diarrhea/constipation. No rashes, denies fever says that he has had some chills. States he had similar symptoms 10 years ago and was diagnosed as "walking pneumonia". After evaluation in the emergency room the patient was admitted to the hospitalist service for further evaluation and treatment. # Acute on chronic diastolic congestive heart failure with anasarca, present on admission. Ongoing - Rule out secondary to progressive cardiomyopathy. Patient claims to have a history of a non-ST elevated NE. However, Dr. Flores does not think that patient has ever had an acute coronary syndrome. - Rule out secondary to progressive aortic stenosis. - The echocardiogram is significant for the presence of severe critical aortic valve stenosis. Consider transfer to [place] for valve replacement. - The serial troponins are just barely above normal - We appreciate cardiology consultation with Dr. Flores. - Continue aggressive diuresis as per Dr. Celeste of nephrology. - We will place Guaman catheter to monitor urine output closely # Insulin-dependent diabetes mellitus - Check blood sugars every before meals and at bedtime - Continue home medications # Acute on chronic kidney disease, present on admission. Ongoing and slightly worse today. - Continue Guaman catheter for accurate and input and output measurements and relief of any possibility of obstructive uropathy. - Patient has a history of chronic kidney disease stage III(Patient's creatinine is now over 3). - With history of benign prostatic hypertrophy and urinary Frequency [address] Guaman catheter to eliminate obstructive uropathy as a factor in the patient's renal failure. - Continue tamsulosin - Nephrology consultation was obtained with Dr. Celeste. I appreciate his consultation and will follow his recommendations. # History of significant coronary artery disease and non-ST elevated NE - Monitor serial troponins - Check echocardiogram and - Cardiology consultation with Dr. Flores appreciated. # Hypertension - Continue medications with carvedilol and diuretics. - Monitor blood pressure closely # History of aortic stenosis - The last echocardiogram on record was in 2013. - Patient now has critically severe aortic stenosis # Severe morbid obesity with BMI at 45.6 kg/m # History of gout Disposition: Patient will be transferred to [facility] under the care of blueprint reproducer Dr. David Isaac . Accepting hospitalist was Dr. Mckeon. At [facility] patient will have the opportunity T for optimization of medical care and then aortic valve replacement. Without aortic valve replacement the patient's mortality rate will be 100%. He understands this and agrees to the transfer as a life-saving measure. Exam Vital Signs (Last) Date Time Temp Pulse Resp B/P Pulse Ox O2 Delivery O2 Flow Rate FiO2 12/26/16 17:21 36.4 93 22 137/79 97 Nasal Cannula 2.50 Exam General: Patient is in no apparent distress laying in bed with his head elevated slightly at 30-45.. He is somewhat somnolent after receiving IV morphine. HEENT: Head is atraumatic and normocephalic. Eyes: Pupils are equally round and reactive to light and accommodation. Extraocular muscles are intact. Sclera are white, anicteric. Subconjunctival mucosa is pink. Ears and nose are unremarkable. Oropharynx: There is no mucosal lesions, there is no thrush, there is no pharyngitis. Neck: Is obese, supple, there are no nodes, or masses or tenderness appreciated. Chest: Is significant for diminished breath sounds bilaterally with a few crackles at the bases. However, the lungs sound slightly clearer today. Heart: Rate, rhythm is regular. There is a grade 2 to 3/6 systolic ejection murmur heard best at left sternal border radiating to the base. There is no rub or gallop. However, heart tones are distant. Abdomen: Good bowel sounds are present. Abdomen is morbidly obese, soft, nontender, no organomegaly or masses could be appreciated. Extremities: Are symmetrical and well perfused. There is no edema, there is no cellulitis, no rash. Neurologic: Cranial nerves II through XII are intact. He does have some dysarthria due to previous stroke patient also has some weakness of the left upper shoulder and left partially due to previous stroke. Psychiatric: Patients mood is calm and he shows no sign of agitation. Genital: A Guaman catheter has been placed. Rectal: Deferred Test 12/23/16 14:48 12/23/16 18:27 12/23/16 18:45 12/24/16 02:10 D-Dimer 1.17mg/L FEU (<0.50) Lactic Acid Level 0.8mmol/L (0.4-2.0) Procalcitonin 0.12ng/mL (0.00-0.08) Hold Urine Received (Received) Urine Color Straw (YELLOW) Urine Appearance Clear (CLEAR,HAZY) Urine pH 5.5 (5.0-8.0) Urine Specific [place] 1.015 (1.003-1.035) Urine Protein 100mg/dL (NEG,TRACE) Urine Glucose (UA) Negativemg/dL (NEGATIVE) Urine Ketones Negativemg/dL (NEGATIVE) Urine Occult Blood Small (NEGATIVE) Urine Nitrite Negative (NEGATIVE) Urine Bilirubin Negative (NEGATIVE) Urine Urobilinogen Normalmg/dL (NORMAL) Urine Leukocyte Esterase Negative (NEGATIVE) Urine RBC 0-2/hpf (0-2) Urine WBC 0-5/hpf (0-5) Urine Epithelial Cells Occasional/hpf (NONE-MOD) Urine Crystals None seen (NONE SEEN) Urine Bacteria None/hpf (NONE-FEW) Urine Hyaline Casts None/lpf (NONE) Urine Granular Casts None seen (NONE SEEN) Urine Waxy Casts None seen (NONE SEEN) Urine Red Blood Cell Casts None seen (NONE SEEN) Urine White Blood Cell Casts None seen (NONE SEEN) Urine Mucus None seen (None Seen) Urine Trichomonas None seen (NONE SEEN) Urine Yeast None (NONE SEEN) Urinalysis Comment None Urine Culture Reflexed Not indicated Prothrombin Time 11.0sec (8.1-12.5) Prothromb Time International Ratio 1.03ratio Phosphorus Level 4.9mg/dL (2.5-4.9) Pro-B-Type Natriuretic Peptide 5574pg/mL (0-121) Triglycerides Level 127mg/dL (0-149) Cholesterol Level 222mg/dL (100-199) LDL Cholesterol, Calculated 164.600mg/dL (0-99) VLDL Cholesterol 25.400mg/dL HDL Cholesterol 32mg/dL (>39) Cholesterol/HDL Ratio 6.94 (0.0-4.4) Test 12/24/16 08:50 12/25/16 05:33 12/26/16 06:05 Troponin T 0.016ug/L (0.0-0.011) Uric Acid 8.8mg/dL (2.6-7.2) Prostate Specific Antigen 1.0ng/mL (0.0-4.0) Free Prostate Specific Antigen 0.38ng/mL (N/A) Percent Free Prostate Specific Ag 38.0% (.) White Blood Count 6.2th/mm3 (3.8-10.1) Red Blood Count 3.49mil/mm3 (4.40-5.80) Hemoglobin 10.3g/dL (13.8-17.2) Hematocrit 31.4% (41.0-50.0) Mean Corpuscular Volume 90.0fL (81-100) Mean Corpuscular Hemoglobin 29.5pg (27.0-35.0) Mean Corpuscular Hemoglobin Concent 32.8% (32.0-37.0) Red Cell Distribution Width 13.5% (12.3-15.4) Platelet Count 182bil/L (150-400) Neutrophils (%) (Auto) 65.6% (40-74) Lymphocytes (%) (Auto) 15.5% (14-46) Monocytes (%) (Auto) 13.9% (4-12) Eosinophils (%) (Auto) 4.5% (0-5) Basophils (%) (Auto) 0.3% (0-3) Sodium Level 144mEq/L (134-144) Potassium Level 3.8mEq/L (3.5-5.2) Chloride Level 105mEq/L (97-108) Carbon Dioxide Level 24mmol/L (18-29) Blood Urea Nitrogen 55mg/dL (6-24) Creatinine 3.68mg/dL (0.76-1.27) Estimat Glomerular Filtration Rate 19mL/min (>59) Glucose Level 152mg/dL (60-99) Calcium Level 8.4mg/dL (8.5-10.1) Magnesium Level 2.0mg/dL (1.6-2.6) Total Bilirubin 0.4mg/dL (0.0-1.2) Aspartate Amino Transf (AST/SGOT) 10U/L (0-50) Alanine Aminotransferase (ALT/SGPT) 12U/L (0-44) Alkaline Phosphatase 63U/L (25-150) Total Protein 5.8g/dL (6.4-8.4) Albumin 3.0g/dL (3.4-5.0) Microbiology Results Blood cultures are pending Discharge Medications Discharge Medications Allopurinol (Allopurinol) 100 Mg Tablet 100 MG PO QAM (Reported) Amitriptyline (Amitriptyline) 10 Mg Tablet 20 MG PO HS (Reported) Amlodipine (Amlodipine) 5 Mg Tablet 5 MG PO QAM (Reported) Aspirin (Aspirin) 325 Mg Tablet 325 MG PO BID (Reported) Carvedilol (Carvedilol) 25 Mg Tablet 50 MG PO BID (Reported) Furosemide (Furosemide) 40 Mg Tablet 40 MG PO BID (Reported) Insulin Glargine (Lantus U100 Insulin Vial) 100 Unit/Ml Vial 26 UNIT SUBQ QAM ( Reported) Insulin Glulisine (Apidra U100 Insulin Vial) 100 Unit/1 Ml Vial 13 UNIT SUBQ TIDAC (Reported) [place]-3/Dha/Epa/Fish Oil (Fish Oil 1,000 mg Softgel) 1 Each Capsule 1 EACH PO BID (Reported) Paroxetine (Paroxetine) 40 Mg Tablet 40 MG PO QAM (Reported) Potassium Chloride ER (Klor-Con M10) 10 Meq Tab.er.prt 10 MEQ PO MOWEFR ( Reported) Tamsulosin ER (Tamsulosin ER) 0.4 Mg Cap.er.24h 0.8 MG PO HS (Reported) As needed Guaifenesin (Mucinex) 600 Mg Tablet.er 600 MG PO BID PRN PRN For Cough (Reported ) Lorazepam (Lorazepam) 0.5 Mg Tablet 0.5 MG PO BID PRN PRN For Anxiety (Reported ) Trazodone (Trazodone) 50 Mg Tablet 50 MG PO HS PRN PRN Insomnia (Reported) Followup Plan Disposition: Patient is being transferred to [facility] under the care of Dr.Sameer Isaac for optimizing station of care for potential aortic valve replacement as a lifesaving procedure. Discharge Diet: Heart Healthy Discharge Activity: Other (as per physicians at receiving facility) Follow-up Provider: Ray Diaz MD Follow-up with PCP in: 2 weeks Time spent Time spent on discharging this patient was greater than 35 minutes, over half of which was involved in counseling and coordination of care. Stewart Mata MD Dec 27, 2016 00:05
== END 2016-12-26 20:25 | disposition short-term general hospital (02) | DRG 291 ==
LOC: SED 14:17 → MPC 17:44
PROVIDERS: ADMIT Internal Medicine Infectious Disease; ATTEND Internal Medicine Infectious Disease
DX: I13.0 Hypertensive heart and chronic kidney disease with heart failure and stage 1 through stage 4 chronic kidney disease, or unspecified chronic kidney disease (principal); I50.33 Acute on chronic diastolic (congestive) heart failure; Z68.42 Body mass index [BMI] 45.0-49.9, adult; N17.9 Acute kidney failure, unspecified; N18.4 Chronic kidney disease, stage 4 (severe); Z79.4 Long term (current) use of insulin; E66.01 Morbid (severe) obesity due to excess calories; I25.10 Atherosclerotic heart disease of native coronary artery without angina pectoris; E11.22 Type 2 diabetes mellitus with diabetic chronic kidney disease; Z86.73 Personal history of transient ischemic attack (TIA), and cerebral infarction without residual deficits; E78.5 Hyperlipidemia, unspecified